=== PATIENT | female | born 1950 | race Caucasian/White ===

== ENCOUNTER 2018-11-07 02:27 | Emergency (ER) | payer OTHER ==
[~2018-11-07] VITALS: Ht 165.1 cm; Wt 59.0 kg
[2018-11-07 02:40] VITALS: BP 0/0
== END 2018-11-07 04:45 ==
LOC: ER 02:27
DX: I46.9 Cardiac arrest, cause unspecified (principal); E78.00 Pure hypercholesterolemia, unspecified